=== PATIENT | male | born 1975 | race Caucasian/White ===

== ENCOUNTER 2018-04-30 16:20 | Emergency (ER) | payer BC ==
[~2018-04-30] VITALS: Ht 185.4 cm; Wt 100.0 kg
[2018-04-30] MEDS ORDERED: ADULT ASPIRIN81 MG PO (16:25)
[2018-04-30] MEDS ORDERED: TOPROL XL 25MG25 MG PO (16:25)
[2018-04-30] MEDS ORDERED: SYNTHROID0.2 MG PO (16:25)
[2018-04-30 17:05] LABS: HEMATOCRIT 48.2 % (42.0-52.0); MEAN CELL VOLUME 95 fl (78-100); MEAN CORPUSCULAR HEMOGLOBIN 31 pg (27-31); MEAN CORPUSCULAR HGB CONC 33 g/dL (33-37); MEAN PLATELET VOLUME 11.3 fl (7.4-10.4); PLATELET COUNT 269 K/mm3 (130-400); RED CELL DISTRIBUTION WIDTH 12.6 % (11.5-14.5); WHITE BLOOD COUNT 20.9 K/mm3 (4.8-10.8)
[2018-04-30 17:07] LABS: ALBUMIN 4.7 g/dL (3.5-5.0); CALCIUM 9.5 mg/dL (8.4-10.2); POTASSIUM 3.9 mmol/L (3.6-5.0); TOTAL BILIRUBIN 0.8 mg/dL (0.2-1.3); TOTAL PROTEIN 8.1 g/dL (6.3-8.2)
[2018-04-30 17:24] LABS: BAND 5 % (0-10); LYMPHOCYTE 6 % (20-51); MONOCYTE 4 % (3-10); NEUTROPHILS 84 % (42-75)
[2018-04-30 19:12] VITALS: BP 126/78
== END 2018-04-30 19:12 | disposition home or self-care (01) ==
LOC: ED 16:20
PROVIDERS: Nurse Practitioner Primary Care
DX: K57.32 Diverticulitis of large intestine without perforation or abscess without bleeding (principal); I10 Essential (primary) hypertension; E03.9 Hypothyroidism, unspecified; Z79.899 Other long term (current) drug therapy; Z79.82 Long term (current) use of aspirin
CPT/HCPCS: J2270; J2405; J7030; Q9967